=== PATIENT | male | born 1960 | race Caucasian/White ===

== ENCOUNTER 2019-05-12 21:31 | Emergency (ER) | payer BC ==
--- NOTE | 2019-05-12 22:07 | EDM.PDOC ---
ED HPI GENERAL MEDICAL PROBLEM - General Chief Complaint: Genitourinary Problem Stated Complaint: URINARY PROBLEM/PAINFUL CATHETER Time Seen by Provider: 05/12/19 21:49 Source of Information: Reports: Patient, RN Notes Reviewed History Limitations: Reports: No Limitations - History of Present Illness INITIAL COMMENTS - FREE TEXT/NARRATIVE: Patient is a 58-year-old male who presents to the ED for evaluation of Hilario catheter problems. The patient notes that he went to [place] today, and saw Dr. Wang for his urinary issues, and he had a Hilario catheter placed at around 3:15 PM today. He notes that they removed around 1700 mL's of fluid at that visit. The patient notes everything was going fine and okay, but he states that the thigh band they placed keeps tugging on the catheter, and this is causing him pain in his penis, and he is also developed some bleeding into his urinary bag. There are some minor clots noted as well to the entrance of the bag. Patient feels as if there is something backed up, he states he has quite a bit of suprapubic tenderness and he states it does hurt to go to the bathroom. This is causing him to be very anxious. He states that he had the catheter placed due to having an enlarged prostate and bilateral hydronephrosis , and he states that the catheter supposed to be in place for a month. He did not take anything or was not given anything for pain management. Penis Pain Score (Numeric/FACES): 10 - Related Data Allergies Allergy/AdvReac Type Severity Reaction Status Date / Time No Known Allergies Allergy Verified 05/12/19 21:44 Home Meds: Home Meds Sertraline [Zoloft] 100 mg PO DAILY 05/12/19 [History] Tamsulosin [Flomax] 0.4 mg PO DAILY 05/12/19 [History] Past Medical History Genitourinary History: Reports: Prostate Disorder, Other (See Below) Other Genitourinary History: hydronephorisis Musculoskeletal History: Reports: Gout - Past Surgical History HEENT Surgical History: Reports: Oral Surgery GI Surgical History: Reports: Cholecystectomy Social & Family History - Tobacco Use Smoking Status *Q: Never Smoker - Caffeine Use Caffeine Use: Reports: Soda - Recreational Drug Use Recreational Drug Use: No ED ROS GENERAL - Review of Systems Review Of Systems: See Below Constitutional: Denies: Fever, Chills Respiratory: Denies: Shortness of Breath Cardiovascular: Denies: Chest Pain GI/Abdominal: Reports: Abdominal Pain (suprapubic tenderness/discomfort). Denies: Nausea, Vomiting : Reports: Dysuria (he states that the sensation of urinating hurts), Hematuria (blood tinged urine in hilario drainage bag with mild clots noted.) ED EXAM, RENAL/ - Physical Exam Exam: See Below Exam Limited By: No Limitations General Appearance: Alert, WD/WN, No Apparent Distress, Anxious (pt is very anxious at bedside and states that he wants the catheter out.) Respiratory/Chest: No Respiratory Distress, Lungs Clear, Normal Breath Sounds, No Accessory Muscle Use, Chest Non-Tender Cardiovascular: Normal Peripheral Pulses, Regular Rate, Rhythm, No Murmur GI/Abdominal: Normal Bowel Sounds, Soft, No Distention, No Mass, Tender ( suprapubic tenderness/fullness) (Male) Exam: Normal Inspection (mild amount of dried blood noted to tip of glans penis, there is hilario catheter in place). No: Urethral Discharge Neurological: Alert, Oriented, Normal Cognition, No Motor/Sensory Deficits Psychiatric: Anxious Skin Exam: Warm, Dry, Intact, Normal Color, No Rash Course - Vital Signs Last Recorded V/S: Last Vital Signs Temp 98.0 F 05/12/19 21:45 Pulse 81 05/12/19 21:45 Resp 20 05/12/19 21:45 BP 134/84 05/12/19 21:45 Pulse Ox 97 05/12/19 21:45 - Orders/Labs/Meds Orders: Active Orders 24 hr Category Date Time Status Bladder Irrigation [RC] BID Care 05/12/19 21:59 Ordered Bladder Scan [RC] ASDIRECTED Care 05/12/19 21:59 Ordered Phenazopyridine [Urinary Pain Relief] Med 05/13/19 22:29 Once 95 mg PO ONETIME ONE Medication Orders Phenazopyridine HCl (Urinary Pain Relief) 95 mg PO ONETIME ONE Stop: 05/13/19 22:30 Meds: Medications Generic Name Dose Route Start Last Admin Trade Name Freq PRN Reason Stop Dose Admin Phenazopyridine HCl 95 mg 05/13/19 22:29 Urinary Pain Relief PO 05/13/19 22:30 ONETIME ONE - Re-Assessments/Exams Free Text/Narrative Re-Assessment/Exam: 05/12/19 22:09 Patient presents to the ED for Hilario catheter issues. I will have nursing staff troubleshoot the catheter to make sure that there is no clot, and make sure that the catheter is in good placement. There is a mild amount of blood within the urine drainage bag. Pt is very anxious and I did tell him that it was not a smart idea to pull the catheter as he wanted. I told him it would need to stay in place until Dr. Wang says otherwise. He seems to be understanding of this at this time. Departure - Departure Time of Disposition: 22:32 Disposition: Home, Self-Care 01 Condition: Fair Clinical Impression: Painful bladder spasm Problem with Hilario catheter Qualifiers: Encounter type: initial encounter Qualified Code(s): T83.9XXA - Unspecified complication of genitourinary prosthetic device, implant and graft, initial encounter - Discharge Information *PRESCRIPTION DRUG MONITORING PROGRAM REVIEWED*: No *COPY OF PRESCRIPTION DRUG MONITORING REPORT IN PATIENT CARLENE: No Instructions: Indwelling Urinary Catheter Care, Adult Referrals: Jacey Nelson MD [Primary Care Provider] - Forms: ED Department Discharge Additional Instructions: You were evaluated in the ER today regarding your Hilario catheter problems. The catheter was assessed for problems, and it seems to be draining appropriately at this ED visit. You were given a longer tube for your leg bag for drainage purposes as the other one was just a tiny bit short. Recommend you try taking 500 mg of Tylenol every 6 hours as needed for further pain relief. Do not exceed 4000 mg Tylenol in a 24-hour time span. You may try Azo (phenazopyridine) for urinary discomfort. This is available over the counter. You should not use this more than 2 days in a row. This medication will make your urine turn orange if you should choose to use it. Please return to the ED if you should experience any concerning or worsening symptoms. Sepsis Event Note - Evaluation Sepsis Screening Result: No Definite Risk - Focused Exam Vital Signs: Vital Signs Temp Pulse Resp BP Pulse Ox 05/12/19 21:45 98.0 F 81 20 134/84 97 Date Exam was Performed: 05/12/19 Time Exam was Performed: 22:32 - My Orders Last 24 Hours: My Active Orders 05/12/19 21:59 Bladder Irrigation [RC] BID Bladder Scan [RC] ASDIRECTED 05/13/19 22:29 Phenazopyridine [Urinary Pain Relief] 95 mg PO ONETIME ONE - Assessment/Plan Last 24 Hours: My Active Orders 05/12/19 21:59 Bladder Irrigation [RC] BID Bladder Scan [RC] ASDIRECTED 05/13/19 22:29 Phenazopyridine [Urinary Pain Relief] 95 mg PO ONETIME ONE
[2019-05-12] MEDS ORDERED: Phenazopyridine 95 MG Tab PO ONE (22:47)
[2019-05-13] MEDS ORDERED: Phenazopyridine 95 MG Tab PO ONE (22:29)
== END 2019-05-12 22:47 | disposition home or self-care (01) ==
LOC: JD.ED 21:31 → SUPCPDRO 21:31 → JD.ED 22:47
DX: T83.9XXA Unspecified complication of genitourinary prosthetic device, implant and graft, initial encounter (principal); N32.89 Other specified disorders of bladder; N40.0 Benign prostatic hyperplasia without lower urinary tract symptoms; Z79.899 Other long term (current) drug therapy; Y73.2 Prosthetic and other implants, materials and accessory gastroenterology and urology devices associated with adverse incidents
CPT/HCPCS: 51700; 51798; 99283; A9270; 99282